=== PATIENT | female | born 1995 | race Caucasian/White ===

== ENCOUNTER → 2017-02-08 | Outpatient (CLI) | payer MEDICAID ==
[~2017-02-08] MED LIST: CIPR500T4 PO; METR500T21 PO
--- NOTE | 2017-02-08 11:58 | Diagnostic Imaging Report ---
First trimester OB ultrasound. INDICATION: Lower abdominal pain FINDINGS: There is a normal-appearing single intrauterine . An embryo is seen with cardiac activity at 156 beats per minute. The crown-rump length is at 7 weeks and 4 days. AMNA is 09/23/17. The ovaries appear unremarkable. No adnexal mass or free fluid is seen in the pelvis. IMPRESSION: Live single intrauterine . Dictated by: Dictated on workstation # [id number]
== END ==
LOC: RAD 11:23
PROVIDERS: ATTEND Obstetrics & Gynecology
DX: O26.891 Other specified pregnancy related conditions, first trimester (principal); R10.30 Lower abdominal pain, unspecified; Z3A.01 Less than 8 weeks gestation of pregnancy
CPT/HCPCS: 76801

== ENCOUNTER 2017-04-30 14:52 | Emergency (ER) | payer MEDICAID ==
[~2017-04-30] VITALS: Ht 157.5 cm; Wt 49.9 kg
--- OUTSIDE RECORDS SUMMARY | 2017-04-30 14:58 | XMS REPORT | Clinical Summary ---
Author Author Admin, [facility] Organization All Address Unknown Phone Unavailable Allergies, Adverse Reactions, Alerts Allergy Name Reaction Description Start Date Severity Status Provider Allergies Unknown Conditions or Problems Problem Name Problem Code Onset Date Status Entry Date Provider Comment Standard Description Annotate Problems Unknown Active Medication List Medication Instructions Start Date Stop Date Generic Name NDC Status Provider Patient Instruction AMOXICILLIN 500 MG CAPS 2 po BID x 10 days AMOXICILLIN [id number] Active Melissa Paz APRN Active
--- OUTSIDE RECORDS SUMMARY | 2017-04-30 14:58 | XMS REPORT ---
Author Author [facility] Address Unknown Phone Unavailable Care Team Providers Care Doctor Chiropractic Name Role Phone Darlene Daugherty PCP Encounter [id number] [id number] Date(s): 10/25/16 - 10/25/[address] [address] Attending Physician: Darlene Daugherty Vital Signs No data available for this section Problem List Condition Effective Dates Status Health Status Informant Depression(Confirmed Active ) (Confirmed) 01/05/14 - 10/19/14 Resolved (Confirmed) 09/11/14 - 10/04/15 Resolved Tobacco < 05/26/13 Resolved patient user(Confirmed)1, 2 1Updated by Discern Expert based on Social History Documentation 2Added by Discern Expert based on Social History Documentation Diagnosis Diagnosis Type Effective Dates Health Status Clinical Service Informant Depression Discharge 10/25/16 Diagnosis Allergies, Adverse Reactions, Alerts Substance Reaction Severity Status Zoloft Hives Active Medications No Known Medications Results No data available for this section Immunizations No data available for this section Procedures No data available for this section Social History No data available for this section Assessment and Plan No data available for this section
--- OUTSIDE RECORDS SUMMARY | 2017-04-30 14:58 | XMS REPORT ---
Author DANNIELLE [facility] [employer] Address Unknown Phone Unavailable Care Team Providers Care Department Administrator Name Role Phone DANNIELLE NUNO CP Unavailable Allergies, Adverse Reactions, Alerts Substance Reaction Event Type N.K.D.A. Info Not Available Non Drug Allergy Problems Problem Type Condition Code Onset Dates Condition Status Problem examination or test, positive result V72.42 Active Problem Unspecified backache 724.5 Active Problem Herpes simplex without mention of complication 054.9 Active Assessment Dental examination Z01.20 Active Medications Medication Code System Code Instructions Start Date End Date Status Dosage PredniSONE [facility] [address]-94 10 mg October 31, 2013 1 Tablet 2 times per day for 5 days Take at 8 am and noon. Acyclovir [facility] [address]-92 400 mg January 06, 2014 1 tablet by Oral route 3 times per day for 5 days Procedures Procedure Coding System Code Date PANORAMIC FILM SEE ALSO CODE 08732 CPT-4 D0330 Mar 21, 2016 LTD ORAL EVALUATION - PROBLEM FOCUS CPT-4 D0140 Mar 21, 2016 Results No Known Results Summary Purpose eClinicalWorks Submission
--- OUTSIDE RECORDS SUMMARY | 2017-04-30 14:58 | XMS REPORT | Continuity of Care Document ---
Author Author [employer] Organization [facility] Address Unknown Phone Unavailable Care Team Providers Care Human Services Program Specialist Name Role Phone [employer] Unavailable Unavailable Problems Problem Status Onset Date Classification Date Reported Comments Source Depressive disorder (disorder) 10/25/2016 Diagnosis 10/29 [facility] Depressive disorder (disorder) 07/24/2016 Diagnosis 07/28 [facility] Dental abscess (disorder) Diagnosis 07/25/2016 [facility] Fatigue (finding) 2016 Diagnosis 07/25/2016 [facility] Acute bronchitis (disorder) 06/06/2016 Diagnosis 2015 [facility] Delivery normal (disorder) 10/05/2015 Diagnosis 2015 [facility] , function (observable entity) Resolved 01/05/2014 Problem 10/29/2016 [facility], [facility], [facility], [facility] Tobacco user (finding) Resolved 05/26/2013 Problem 2016 Updated by Discern Expert based on Social History Documentation Added by Discern Expert based on Social History Documentation [facility], [facility], [facility], [facility], [facility] Depressive disorder (disorder) Active Problem 10/29/2016 [facility], [facility], [facility], [facility], [facility] Medications Medication Details Route Status Patient Instructions Ordering Provider Order Date Source No Known Medications No known medications Active [facility] Allergies, Adverse Reactions, Alerts Substance Category Reaction Severity Reaction type Status Date Reported Comments Source Sertraline Assertion Hives Drug allergy [facility], [facility], [facility]. sertraline drug allergy Hives Allergy [facility] Immunizations Immunization Date Given Site Status Last Updated Comments Source No data available for this section No data available for this section [facility], [facility]. Results Vital Signs Encounters Location Location Details Encounter Type Encounter Number Reason For Visit Attending Provider ADM Date DC Date Status Source [facility] [id number] Clinic ( Outpatient) [id number] . [facility] 05/22/2013 [facility] [id number] Clinic ( Outpatient) [id number] . [facility] 05/23/2013 [facility] [id number] Clinic ( Outpatient) [id number] Lydia Halimamagnus 05/26/2013 [facility] [id number] Clinic ( Outpatient) [id number] Vanessa Hutchins 06/12/2013 [facility] [id number] Emergency [id number] [facility] 09/11/2013 09/11/2013 Active [facility] [id number] Emergency [id number] [facility] 09/11/2013 09/11/2013 Active [facility] [id number] Outpatient [id number] Arabella Noland 09/12/2015 Active [facility], [facility]. [facility] [id number] Inpatient [id number] Virginia Kirkland 10/04/2015 10/05/2015 Active [facility], [facility]. [facility] [id number] Jonathan Norris 06/06/2016 06/07/2016 [facility] [id number] Clinic ( Outpatient) [id number] Sam Henning 07/21/2016 07/21/2016 Active [facility] [id number] Darlene Daugherty 07/24/2016 [facility]/25[facility] [id number] Darlene Daugherty 10/25/2016 10/26/2016 [facility] Procedures Procedure Code Date Perfomer Comments Source No data available for this section [facility] Plan of Care Social History Assessment and Plan Family History Value Date Source Advance Directives Order Name Results Value Date Source
--- OUTSIDE RECORDS SUMMARY | 2017-04-30 14:58 | XMS REPORT ---
Author Author [facility] Organization [facility] Address [address], [place] [address] Phone [phone] Care Team Providers Care High School Combination Teacher Name Role Phone SAVITA AHUJA, LUAN PP [phone] Summary purpose TRANSITION OF CARE AUTO GENERATION Chief Complaint and Reason for Visit No authorized Reason for Visit (Admitting Diagnosis) is available for this visit. Problem list No authorized problems tracked for continuity of care are available for this visit. Encounters No authorized problems tracked for encounter diagnoses are available for this visit. Medications No medications recorded for this patient visit Allergies, adverse reactions, alerts No allergy information is available for this patient. Immunizations No immunizations recorded for this patient visit Relevant diagnostic tests and/or laboratory data RESULTS Radiology Results [id number]:05:00 Preg Compl Sono >14 wks PACs Image DATE OF EXAM: May 19 2015 [id number] SONO > 14WKS : RADIOLOGY REPORT DATE OF SERVICE: 05/19/15 HISTORY: Anatomic survey OB SONOGRAM GREATER THAN 14 WEEKS COMPLETE [id number] HOURS Single fetus is seen in breech presentation. There is active cardiac motion with heart rate of 142 beats per minute. BPD measurement suggests 20 week, 1 day gestation with head circumference 19 weeks, 3 days, abdominal circumference 20 weeks, 4 days and femur length 19 weeks, 6 days, giving composite average age of 20 weeks, 0 days. Estimated weight is 336 grams +/- 50 grams. This is approximately 12 ounces fetus in the 46th percentile. No anomaly is identified. Cervix is greater than 3 cm length and is closed. Placenta is posteriorly located without placenta previa. Amniotic fluid amount is normal with CHRISTOPHER equaling 11.6. Largest vertical pocket is 3.8 cm. IMPRESSION: Breech presentation. Age of approximately 20 week 0 days which agrees with previous study 04/19/2015. No abnormality identified. Estimated date of confinement sonographically is 10/06/2015. DO MYCHAL Farah/ny 05/19/2015 14:40:00 / 05/19/2015 14:53:29 cc:Dr. Aminta Townsend This document has been electronically Signed by: On: History of procedures No procedures recorded for this patient visit. Functional status No functional or cognitive status observations are available for this visit. Vital signs No authorized vital signs are available for this visit. Social history No Social History or smoking status observations were recorded for this visit. ( Unknown if ever smoked.) Treatment Plan No treatment plan text is available for this visit. Hospital discharge instructions No discharge instruction text is available for this visit.
--- OUTSIDE RECORDS SUMMARY | 2017-04-30 14:59 | XMS REPORT | Clinical Summary ---
Author Author Admin, [facility] Organization All Address Unknown Phone Unavailable Allergies, Adverse Reactions, Alerts Allergy Name Reaction Description Start Date Severity Status Provider Allergies Unknown Conditions or Problems Problem Name Problem Code Onset Date Status Entry Date Provider Comment Standard Description Annotate Pharyngitis, acute 462 Active Melissa Paz APRN Acute pharyngitis Medication List Medication Instructions Start Date Stop Date Generic Name NDC Status Provider Patient Instruction AMOXICILLIN 500 MG CAPS 2 po BID x 10 days AMOXICILLIN [id number] No Longer Active Melissa Paz APRN Active AMOXICILLIN 500 MG CAPS 2 po BID x 10 days AMOXICILLIN 500 MG CAPS [id number] AMOXICILLIN Inactive Vital Signs Date Name Value Unit Range Description blood pressure, diastolic - 8462-4 83 mm[Hg] BP elizondo blood pressure, systolic - 8480-6 121 mm[Hg] BP sys height E&M - 8302-2 105 [in_us] Bdy height temperature E&M 99.8 [degF] Body temperature weight E&M - 3141-9 121 [lb_av] Weight Measured Encounters Code Encounter Date Provider Facility CPT-14683 Level 2 New Patient 11:56:32 CDT Melissa Paz APRN [facility]
--- OUTSIDE RECORDS SUMMARY | 2017-04-30 14:59 | XMS REPORT | Clinical Summary ---
Author Author Admin, [facility] Organization All Address Unknown Phone Unavailable Allergies, [...] 2 po BID x 10 days AMOXICILLIN [id number] No Longer Active Melissa Paz APRN Active AMOXICILLIN 500 MG CAPS 2 po BID x 10 days AMOXICILLIN 500 MG CAPS 304007 AMOXICILLIN Inactive Vital Signs Date Name Value Unit Range Description blood pressure, diastolic - 8462-4 83 mm[Hg] BP elizondo blood pressure, systolic - 8480-6 121 mm[Hg] BP sys height E&M - 8302-2 105 [in_us] Bdy height temperature E&M 99.8 [degF] Body temperature weight E&M - 3141-9 121 [lb_av] Weight Measured Encounters Code Encounter Date Provider Facility CPT-18084 Level 2 New Patient 11:56:32 CDT Melissa Paz APRN [facility]
--- OUTSIDE RECORDS SUMMARY | 2017-04-30 14:59 | XMS REPORT ---
Author Author [facility] Organization [facility] Address [address], [place] [address] Phone [phone] Care Team Providers Care Electron Microprobe Operator Name Role Phone SAVITA AHUJA, LUAN PP [phone] Summary purpose TRANSITION OF CARE AUTO GENERATION [...] tests and/or laboratory data RESULTS Radiology Results [id number]:40:00 Preg Compl Sono >14 wks PACs Image DATE OF EXAM: May 19 2015 [id number] SONO > 14WKS : RADIOLOGY REPORT DATE OF SERVICE: 05/19/15 HISTORY: Anatomic survey OB SONOGRAM GREATER THAN 14 WEEKS COMPLETE [id number] HOURS Single fetus is seen in breech [...] of confinement sonographically is 10/06/2015. DO MYCHAL Farha/dc 05/19/2015 14:40:05/19/2015 14:53:29 cc:Dr. Josephine Townsend This document has been electronically Signed by: On: DATE OF EXAM: May 19 2015 [id number] SONO > 14WKS : RADIOLOGY REPORT DATE OF SERVICE: 05/19/15 HISTORY: Anatomic survey OB SONOGRAM GREATER THAN 14 WEEKS COMPLETE [id number] HOURS Single fetus is seen in breech [...] Estimated date of confinement sonographically is 10/06/2015. Isabel Herring DO /dc 05/19/2015 14:40:05/19/2015 14:53:29 cc:Dr. Josephine Townsend This document has been electronically Signed by: ISABEL HERRING DO On: May 20 20153:40P Result Amended on 2015-05-20 at 15:40:19. Previous status was [place]. History of procedures Procedure Code Code Type Description Date Performed Performing Physician 51473 CPT-4 OB US >/=14 WKS SNGL FETUS 05-19-2015 JOSEPHINE KHAN Functional status No functional or cognitive status [...]
--- OUTSIDE RECORDS SUMMARY | 2017-04-30 14:59 | XMS REPORT ---
Author Author [facility] Organization [facility] Address [address], [place] [address] Phone [phone] Summary purpose TRANSITION OF CARE AUTO GENERATION [...] Relevant diagnostic tests and/or laboratory data RESULTS Hematology [id number]:14:00 Result Normal Range Units WBC 6.2 4.8-10.8 103/uL RBC L 3.8 4.2-5.4 106/uL HGB L 10.9 12.0-16.0 g/dl HCT L 33.2 36.9-47.0 % MCV 87.8 81-99 FL MCH 28.8 27-31 pg MCHC L 32.8 33-37 g/dl RDW 13.2 11.5-15.5 % PLT 180 130-400 103/uL MPV 10.4 7.3-10.4 FL Neutro % 67.2 40-70 % Lymph % 22.1 20-40 % Piatt % 8.0 0-10.0 % Eos % 1.6 0-7.0 % Baso % 0.8 0-2 % Neutro # 4.1 1.5-7.5 103/uL Lymph # 1.4 0.9-4.0 103/uL Piatt # 0.5 0-0.8 103/uL Eos # 0.1 0-0.6 103/uL Baso # 0.1 0-0.1 103/uL Radiology Results [id number]:14:00 Result Normal Range Units MPV 10.4 7.3-10.4 [place] Reference Lab (send out) [id number]:14:00 Result Normal Range Units 1hr Glucose Tolerance 94 70-105 mg/dl History of procedures Procedure Code Code Type Description Date Performed Performing Physician J2790 CPT-4 RHO D IMMUNE GLOBULIN INJ 07-14-2015 SUSU MALIN 98294 CPT-4 GLUCOSE TEST 07-14-2015 SUSU MALIN 19741 CPT-4 COMPLETE CBC W/AUTO DIFF WBC 07-14-2015 SUSU MALIN Functional status No functional or cognitive status [...]
--- OUTSIDE RECORDS SUMMARY | 2017-04-30 14:59 | XMS REPORT | Clinical Summary ---
Author Author Admin, [facility] Organization All Address Unknown Phone [...] 2 po BID x 10 days AMOXICILLIN [id number] No Longer Active Melissa Paz APRN Active AMOXICILLIN 500 MG CAPS 2 po BID x 10 days AMOXICILLIN 500 MG CAPS 278416 AMOXICILLIN Inactive Vital Signs Date Name Value Unit Range Description blood pressure, diastolic - 8462-4 83 mm[Hg] BP elizondo blood pressure, systolic - 8480-6 121 mm[Hg] BP sys height E&M - 8302-2 105 [in_us] Bdy height temperature E&M 99.8 [degF] Body temperature weight E&M - 3141-9 121 [lb_av] Weight Measured Encounters Code Encounter Date Provider Facility CPT-54433 Level 2 New Patient 11:56:32 CDT Melissa Paz APRN [facility]
--- OUTSIDE RECORDS SUMMARY | 2017-04-30 14:59 | XMS REPORT | Clinical Summary ---
Author Author Admin, [facility] Organization All Address Unknown Phone Unavailable Allergies, [...] 2 po BID x 10 days AMOXICILLIN [id number] No Longer Active Melissa Paz APRN Active AMOXICILLIN 500 MG CAPS 2 po BID x 10 days AMOXICILLIN 500 MG CAPS 480557 AMOXICILLIN Inactive Vital Signs Date Name Value Unit Range Description blood pressure, diastolic - 8462-4 83 mm[Hg] BP elizondo blood pressure, systolic - 8480-6 121 mm[Hg] BP sys height E&M - 8302-2 105 [in_us] Bdy height temperature E&M 99.8 [degF] Body temperature weight E&M - 3141-9 121 [lb_av] Weight Measured Encounters Code Encounter Date Provider Facility CPT-74154 Level 2 New Patient 11:56:32 CDT Melissa Paz APRN [facility]
--- OUTSIDE RECORDS SUMMARY | 2017-04-30 14:59 | XMS REPORT ---
Author Author [facility] Medical Staff Organization [facility] Address [address] [place], [place] [address] Phone [phone] Care Team Providers Care Flaker Tender Name Role Phone SAVITA AHUJA, LUAN PP [phone] Summary purpose TRANSITION OF CARE AUTO GENERATION [...] diagnostic tests and/or laboratory data RESULTS Hematology [id number]:12:00 Result Normal Range Units WBC 6.6 4.8-10.8 103/uL RBC L 4.1 4.2-5.4 106/uL HGB L 11.3 12.0-16.0 g/dl HCT L 34.6 36.9-47.0 % MCV 85.4 81-99 FL MCH 27.9 27-31 pg MCHC L 32.7 33-37 g/dl RDW 14.8 11.5-15.5 % PLT 186 130-400 103/uL MPV 10.3 7.3-10.4 FL Radiology Results [id number]:59:00 Preg Compl Sono >14 wks PACs Image DATE OF EXAM: Apr 19 2015 [id number] SONO > 14WKS : RADIOLOGY REPORT DATE OF SERVICE: 04/19/15 HISTORY: Verify dating and intrauterine position. This is a complete study. OB SONOGRAM GREATER THAN 14 WEEKS [id number] HOURS Single fetus in breech position initially and then changed to vertex position is seen. There is active cardiac motion with heart rate 150 beats per minute. BPD measurement suggests 15 week 6 day gestation with abdominal circumference 16 weeks 2 days, head circumference 15 weeks 2 days and femur length 15 weeks 4 days, giving composite average age of 15 weeks 5 days. Estimated weight is 137 grams +/- 20 grams. This is approximately 5 ounces fetus. Kidneys are not diagnostically seen. No abnormality in renal fossa is seen. Other organs appear unremarkable. The cervix is 3.4 cm length and closed. Placenta is posteriorly located on the right without abnormality or placenta previa. Amniotic fluid amount is normal. IMPRESSION: Approximately 15 week 5 day gestation which is alive and in varied positions during the skin. No abnormality is seen. DO Sonja Farah 04/19/2015 10:09:00 / 04/19/2015 10:16:45 cc:Dr. Aminta Townsend This document has been electronically Signed by: On: DATE OF EXAM: Apr 19 2015 [id number] SONO > 14WKS : RADIOLOGY REPORT DATE OF SERVICE: 04/19/15 HISTORY: Verify dating and intrauterine position. This is a complete study. OB SONOGRAM GREATER THAN 14 WEEKS [id number] HOURS Single fetus in breech position initially and then changed to vertex position is seen. There is active cardiac motion with heart rate 150 beats per minute. BPD measurement suggests 15 week 6 day gestation with abdominal circumference 16 weeks 2 days, head circumference 15 weeks 2 days and femur length 15 weeks 4 days, giving composite average age of 15 weeks 5 days. Estimated weight is 137 grams +/- 20 grams. This is approximately 5 ounces fetus. Kidneys are not diagnostically seen. No abnormality in renal fossa is seen. Other organs appear unremarkable. The cervix is 3.4 cm length and closed. Placenta is posteriorly located on the right without abnormality or placenta previa. Amniotic fluid amount is normal. IMPRESSION: Approximately 15 week 5 day gestation which is alive and in varied positions during the skin. No abnormality is seen. DO MYCHAL Farah/moe 04/19/2015 10:09:00 / 04/19/2015 10:16:45 cc:Dr. Aminta Townsend This document has been electronically Signed by: ISABEL HERRING DO On: Apr 19 2015 11:59A Result Amended on 2015-04-19 at 11:59:52. Previous status was [place]. [id number]:12:00 Result Normal Range Units MPV 10.3 7.3-10.4 [place] [facility] Lab (send out) [id number]:12:00 Result Normal Range Units Miscellaneous Test CHLGCU Miscellaneous Test AFFIRM Miscellaneous Test TOXOPLASMOSIS IGM/IGG Miscellaneous Test HIVAGAB Miscellaneous Test HBSAG Miscellaneous Test RPR Miscellaneous Test RUBELLA IMMUNE STATUS History of procedures No procedures recorded for [...]
--- OUTSIDE RECORDS SUMMARY | 2017-04-30 14:59 | XMS REPORT ---
Author Author [employer] [facility] Medical Staff Organization [facility] Address [address], [place] [id number] Phone [phone] Care Team Providers Care [employer] Name Role Phone SAVITA AHUJA, LUAN PP [phone] Summary purpose TRANSITION OF CARE AUTO GENERATION [...] Relevant diagnostic tests and/or laboratory data RESULTS Routine Cultures [id number]:00 Urine Culture Plate Date and Time 04/19/2015 12:45 SourceURINE CULTURE REPORT No Growth After 24 Hours Release Date/Time: 04/20/2015 08:41 CULTURE REPORT No Growth After 48 Hours Release Date/Time: 04/21/2015 07:09 Hematology [id number]:[id number] Result Normal Range Units WBC 6.6 4.8-10.8 103/uL RBC L 4.1 4.2-5.4 106/uL HGB L 11.3 12.0-16.0 g/dl HCT L 34.6 36.9-47.0 % MCV 85.4 81-99 FL MCH 27.9 27-31 pg MCHC L 32.7 33-37 g/dl RDW 14.8 11.5-15.5 % PLT 186 130-400 103/uL MPV 10.3 7.3-10.4 FL Radiology Results [id number] Preg Compl Sono >14 wks PACs Image DATE OF EXAM: Apr 19 2015 [id number] [id number] > 14WKS : RADIOLOGY REPORT DATE OF SERVICE: 04/19/15 HISTORY: Verify dating and intrauterine position. This is a complete study. OB SONOGRAM GREATER THAN 14 WEEKS [id number] HOURS Single fetus in breech position initially [...] abnormality is seen. DO MYCHAL Farah/moe 04/19/2015 10:09: / 04/19/2015 10:16:45 cc:Dr. Aminta Townsend This document has been electronically Signed by: On: DATE OF EXAM: Apr 19 2015 [id number] SONO > 14WKS : RADIOLOGY REPORT DATE OF SERVICE: 04/19/15 HISTORY: Verify dating and intrauterine position. This is a complete study. OB SONOGRAM GREATER THAN 14 WEEKS [id number] HOURS Single fetus in breech position initially [...] abnormality is seen. DO MYCHAL Farah/moe 04/19/2015 10:09: / 04/19/2015 10:16:45 cc:Dr. Aminta Townsend This document has been electronically Signed by: NEVAEH BEE ISABEL On: Apr 19 2015 11:59A Result Amended on 2015-04-19 at 11:59:52. Previous status was MO. [id number] Result Normal Range Units MPV 10.3 7.3-10.4 FL Reference Lab (send out) [id number]:00 Result Normal Range Units Miscellaneous Test CHLGCU Miscellaneous Test AFFIRM Miscellaneous Test TOXOPLASMOSIS IGM/IGG Miscellaneous Test HIVAGAB Miscellaneous Test HBSAG Miscellaneous Test RPR Miscellaneous Test RUBELLA IMMUNE STATUS Miscellaneous Report See separate report. Report may be seen in EDM or may be a separate faxed report. Miscellaneous Report See separate report. Report may be seen in EDM or may be a separate faxed report. Miscellaneous Report See separate report. Report may be seen in EDM or may be a separate faxed report. Miscellaneous Report See separate report. Report may be seen in EDM or may be a separate faxed report. Miscellaneous Report See separate report. Report may be seen in EDM or may be a separate faxed report. Miscellaneous Report See separate report. Report may be seen in EDM or may be a separate faxed report. Miscellaneous Report See separate report. Report may be seen in EDM or may be a separate faxed report. History of procedures No procedures recorded for [...]
[2017-04-30] MEDS ORDERED: NS IV 1000 ML 1,000 ML IV ONE (15:36)
[2017-04-30 15:52] LABS: BASOPHILS # (AUTO) 0.1 10^3/uL (0.0-0.1); BASOPHILS % (AUTO) 1 % (0-10); EOSINOPHILS # (AUTO) 0.3 10^3/uL (0.0-0.3); EOSINOPHILS % (AUTO) 6 % (0-10); LYMPHOCYTES # (AUTO) 1.3 X 10^3 (1.0-4.0); LYMPHOCYTES % (AUTO) 29 % (12-44); MEAN CORPUSCULAR HEMOGLOBIN 27 PG (25-34); MEAN CORPUSCULAR HGB CONC 33 G/DL (32-36); MEAN CORPUSCULAR VOLUME 83 FL (80-99); MEAN PLATELET VOLUME 9.8 FL (7.4-10.4); MONOCYTES # (AUTO) 0.7 X 10^3 (0.0-1.0); MONOCYTES % (AUTO) 14 % (0-12); NEUTROPHILS # (AUTO) 2.3 X 10^3 (1.8-7.8); NEUTROPHILS % (AUTO) 50 % (42-75); PLATELET COUNT 232 10^3/uL (130-400); RED BLOOD COUNT 4.42 10^6/uL (4.35-5.85); RED CELL DISTRIBUTION WIDTH 14.4 % (10.0-14.5); WHITE BLOOD COUNT 4.7 10^3/uL (4.3-11.0)
--- NOTE | 2017-04-30 16:12 | ED General ---
General Chief Complaint: General Problems/Pain Stated Complaint: MULTIPLE COMPLAINTS Nursing Triage Note: pt reports neck and back pain x 3-4 days. Pt also reports intermittent palpitations. 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 She also had an IUD placed there. Pt reports they will no longer see her and that she is still having discharge down there. Nursing Sepsis Screen: No Definite Risk Source of Information: Patient Exam Limitations: No Limitations History of Present Illness Time Seen by Provider: 15:30 Initial Comments Here with report of a variety of complaints. Initial complaints and at around muscle pain along her back in shoulder on the left side. She states this is around her shoulder. Also is complaining about vaginal discharge and dark urine. Apparently she had IUD placed sometime back. She also had a medical with medication a month or 2 ago. She had persistent vaginal bleeding afterwards. She has been seen by Dr. Campbell. He ultimately did place IUD. She went last week for reevaluation due to the fact that she had vaginal discharge and was not able to see the doctor. She states the nurses there told her that she needed to find a family health clinic and they did give her a prescription for Flagyl. She has been taking this for 5 days and it has not helped. Does complain of lower abdominal pain. No fever or chills currently. She is very concerned about the discharge from the vagina. Timing/Duration: 1 Week Severity: Moderate, Severe Associated Systoms: No Chest Pain, No Cough, No Fever/Chills, No Nausea/ Vomiting, No Shortness of Air, Weakness Allergies and Home Medications Allergies Coded Allergies: No Known Drug Allergies (Unverified , 04/30/17) Home Medications No Active Prescriptions or Reported Meds Constitutional: see HPI, No chills, No fever EENTM: no symptoms reported Respiratory: no symptoms reported Cardiovascular: chest pain, palpitations Gastrointestinal: abdominal pain (Suprapubic), No nausea, No vomiting Genitourinary: discharge, pain : No Musculoskeletal: No back pain, No muscle pain Skin: no symptoms reported Psychiatric/Neurological: Anxiety, Denies Depressed Immunological/Allergic: no symptoms reported All Other Systems Reviewed Negative Unless Noted: Yes Past Wzwgsii-Qnmpdn-Egyqvr Hx Patient Social History Alcohol Use: Denies Use Recreational Drug Use: Yes (hx of opiod abuse) Smoking Status: Current Everyday Smoker Type Used: Cigarettes Recent Foreign Travel: No Contact w/Someone Who Travel: No Recent Infectious Disease Expo: No Physical Abuse: No Sexual Abuse: No Mistreated: No Fear: No Surgeries History of Surgeries: Yes (toes) Respiratory History of Respiratory Disorde: No Cardiovascular History of Cardiac Disorders: No Neurological History of Neurological Disord: No Genitourinary History of Genitourinary Disor: No Gastrointestinal History of Gastrointestinal Di: No Musculoskeletal History of Musculoskeletal Dis: No Endocrine History of Endocrine Disorders: No HEENT History of HEENT Disorders: No Cancer History of Cancer: No Psychosocial History of Psychiatric Problem: Yes Behavioral Health Disorders: Depression Suicide Risk Score: 0 Blood Transfusions History of Blood Disorders: No Reviewed Nursing Assessment Reviewed/Agree w Nursing PMH: Yes Physical Exam Vital Signs Vital Sign - Last 12Hours 04/30/17 15:11 Temp 97.3 Pulse 108 Resp 30 B/P (MAP) 106/68 Pulse Ox 100 Capillary Refill : Less Than 3 Seconds General Appearance: No Apparent Distress, WD/WN HEENT: PERRL/EOMI, Pharynx Normal Neck: Non Tender, Supple Respiratory: Lungs Clear, Normal Breath Sounds Cardiovascular: No Murmur, Tachycardia Gastrointestinal: Soft, Tenderness (suprapubic region) Genital/Rectal: Other (external genital exam normal. Clear brown drainage noted in vaginal vault. Retained tampon noted within the vaginal vault and this was removed. Cervix friable externally. IUD string noted within the cervical os.) Back: No CVA Tenderness, No Vertebral Tenderness, Muscle Spasm, Other (tender to the left posterior shoulder area and base of the neck on the left) Extremity: Normal Range of Motion, Non Tender Neurologic/Psychiatric: Alert, Oriented x3 Skin: Normal Color, Warm/Dry Progress/Results/Core Measures Results/Orders Lab Results Laboratory Tests Test 04/30/17 14:41 04/30/17 16:04 04/30/17 16:57 Range/Units White Blood Count 4.7 4.3-11.0 10^3/uL Red Blood Count 4.42 4.35-5.85 10^6/uL Hemoglobin 12.1 11.5-16.0 G/DL Hematocrit 37 35-52 % Mean Corpuscular Volume 83 80-99 FL Mean Corpuscular Hemoglobin 27 25-34 PG Mean Corpuscular Hemoglobin Concent 33 32-36 G/DL Red Cell Distribution Width 14.4 10.0-14.5 % Platelet Count 232 130-400 10^3/uL Mean Platelet Volume 9.8 7.4-10.4 FL Neutrophils (%) (Auto) 50 42-75 % Lymphocytes (%) (Auto) 29 12-44 % Monocytes (%) (Auto) 14 H 0-12 % Eosinophils (%) (Auto) 6 0-10 % Basophils (%) (Auto) 1 0-10 % Neutrophils # (Auto) 2.3 1.8-7.8 X 10^3 Lymphocytes # (Auto) 1.3 1.0-4.0 X 10^3 Monocytes # (Auto) 0.7 0.0-1.0 X 10^3 Eosinophils # (Auto) 0.3 0.0-0.3 10^3/uL Basophils # (Auto) 0.1 0.0-0.1 10^3/uL Sodium Level 139 135-145 MMOL/L Potassium Level 3.7 3.6-5.0 MMOL/L Chloride Level 106 98-107 MMOL/L Carbon Dioxide Level 26 21-32 MMOL/L Anion Gap 7 5-14 MMOL/L Blood Urea Nitrogen 9 7-18 MG/DL Creatinine 0.68 0.60-1.30 MG/DL Estimat Glomerular Filtration Rate > 60 BUN/Creatinine Ratio 13 Glucose Level 64 L 70-105 MG/DL Calcium Level 9.4 8.5-10.1 MG/DL Total Bilirubin 0.3 0.1-1.0 MG/DL Aspartate Amino Transf (AST/SGOT) 22 5-34 U/L Alanine Aminotransferase (ALT/SGPT) 17 0-55 U/L Alkaline Phosphatase 55 40-136 U/L C-Reactive Protein High Sensitivity 2.33 H 0.00-0.50 MG/DL Total Protein 7.7 6.4-8.2 GM/DL Albumin 4.2 3.2-4.5 GM/DL Urine Color MANNY H Urine Clarity CLEAR Urine pH 7 5-9 Urine Specific [place] 1.015 L 1.016-1.022 Urine Protein 1+ H NEGATIVE Urine Glucose (UA) NEGATIVE NEGATIVE Urine Ketones 1+ H NEGATIVE Urine Nitrite POSITIVE H NEGATIVE Urine Bilirubin NEGATIVE NEGATIVE Urine Urobilinogen 1 NORMAL MG/DL Urine Leukocyte Esterase 2+ H NEGATIVE Urine RBC (Auto) NEGATIVE NEGATIVE Urine RBC NONE /HPF Urine WBC 2-5 /HPF Urine Squamous Epithelial Cells 0-2 /HPF Urine Crystals NONE /LPF Urine Bacteria NONE /HPF Urine Casts NONE /LPF Urine Mucus SMALL H /LPF Urine Culture Indicated NO Micro Results Microbiology 04/30/17 Genital Culture, Resulted Pending 04/30/17 Wet Prep - Final, Resulted My Orders Orders - NORA MONTES MD Cbc With Automated Diff (04/30/17 15:36) Comprehensive Metabolic Panel (04/30/17 15:36) Hs C Reactive Protein (04/30/17 15:36) Ua Culture If Indicated (04/30/17 15:36) Saline Lock/Iv-Start (04/30/17 15:36) Ns Iv 1000 Ml (Sodium Chloride 0.9%) (04/30/17 15:36) Wet Prep (04/30/17 15:36) Neisseria Gonorrhea Dna (04/30/17 15:36) Chlamydia Dna (04/30/17 15:36) Genital Culture (04/30/17 15:36) Medications Given in ED Current Medications Medications Dose Ordered Sig/Selina Route Start Time Stop Time Status Last Admin Dose Admin Sodium Chloride 1,000 ml @ 0 mls/hr Q0M ONCE IV 04/30/17 15:36 04/30/17 15:41 DC 04/30/17 16:20 0 MLS/HR Vital Signs/I&O Vital Sign - Last 12Hours 04/30/17 15:11 Temp 97.3 Pulse 108 Resp 30 B/P (MAP) 106/68 Pulse Ox 100 Blood Pressure Mean: 81 Progress Note : Progress Note Seen and evaluated. IV, labs, UA, normal saline 1 L bolus ordered. Anticipate pelvic exam. Monitor patient. 1730: Pelvic exam complete. Patient had retained tampon. She states this tampon is been in for a week and she states that it was and at the time of insertion of the IUD. She states that she has not placed a tampon since and he was only before then. Either way, it was removed. Obviously there is some foul-smelling drainage with this. IUD appears to be in place. Cervix is tender with some areas of irritation. We will extend the Flagyl for another 7 days and add Cipro. Patient is actually feeling better now. Discharged home with return precautions. Patient verbalize understanding instructions and agreement with plan. Departure Impression Impression: Primary Impression: Bacterial vaginosis Additional Impressions: Retained tampon Qualified Codes: T19.2XXA - Foreign body in vulva and vagina, initial encounter Urinary tract infection Qualified Codes: N30.00 - Acute cystitis without hematuria Disposition: HOME, SELF-CARE Condition: Improved Departure-Patient Inst. Decision time for Depature: 17:38 Referrals: NO,LOCAL PHYSICIAN (PCP/Family) Primary Care Physician Patient Instructions: Bacterial Vaginosis (DC), Urinary Tract Infection, Adult (DC) Add. Discharge Instructions: All discharge instructions reviewed with patient and/or family. Voiced understanding. Take medications as directed. Follow-up with Dr. Campbell or physician of your choice for recheck and further evaluation. Return for worse pain, fever, vomiting, weakness, breathing problems, increasing vaginal discharge or bleeding , increasing abdominal pain or other concerns as needed. You may take ibuprofen 600 mg every 8 hours as needed for pain. You may take Tylenol 1000 mg every 8 hours as needed for pain. Drink plenty of fluids. Scripts Metronidazole (Metronidazole) 500 Mg Tablet 500 MG PO BID, #14 TAB 0 Refills Prov: NORA MONTES MD 04/30/17 Ciprofloxacin HCl (Ciprofloxacin HCl) 500 Mg Tablet 500 MG PO BID, #14 TAB Prov: NORA MONTES MD 04/30/17 Copy Copies To 1: DAMEON CAMPBELL MD, TIMOTHY D MD Apr 30, 2017 16:12
[2017-04-30 16:14] LABS: BILIRUBIN,URINE NEGATIVE (NEGATIVE); KETONES,URINE 1+ (NEGATIVE); LEUKOCYTE ESTERASE ,URINE 2+ (NEGATIVE); NITRITE,URINE POSITIVE (NEGATIVE); PH,URINE 7 (5-9); PROTEIN,URINE 1+ (NEGATIVE); UROBILINOGEN,URINE 1 MG/DL (NORMAL)
[2017-04-30 16:16] LABS: ALANINE AMINOTRANSFERASE 17 U/L (0-55); ALBUMIN 4.2 GM/DL (3.2-4.5); ANION GAP 7 MMOL/L (5-14); ASPARTATE AMINO TRANSFERASE 22 U/L (5-34); BILIRUBIN,TOTAL 0.3 MG/DL (0.1-1.0); BLOOD UREA NITROGEN 9 MG/DL (7-18); BUN/CREATININE RATIO 13; CALCIUM 9.4 MG/DL (8.5-10.1); CARBON DIOXIDE 26 MMOL/L (21-32); CHLORIDE 106 MMOL/L (98-107); CREATININE SERUM 0.68 MG/DL (0.60-1.30); GFR ESTIMATED > 60; GLUCOSE 64 MG/DL (70-105); POTASSIUM 3.7 MMOL/L (3.6-5.0); SODIUM 139 MMOL/L (135-145); TOTAL PROTEIN 7.7 GM/DL (6.4-8.2); hs C REACTIVE PROTEIN 2.33 MG/DL (0.00-0.50)
[2017-04-30 16:25] LABS: SQUAMOUS EPITHELIAL CELL,UR 0-2 /HPF
[2017-04-30] MEDS ORDERED: METR500T21 PO (17:40)
[2017-04-30] MEDS ORDERED: CIPR500T4 PO (17:40)
[2017-04-30 17:43] VITALS: BP 124/62
== END 2017-04-30 17:43 | disposition home or self-care (01) ==
LOC: EDUNIT# 14:52 → ER 14:54
DX: N76.0 Acute vaginitis (principal); B96.89 Other specified bacterial agents as the cause of diseases classified elsewhere; T19.2XXA Foreign body in vulva and vagina, initial encounter; N39.0 Urinary tract infection, site not specified; F32.9 Major depressive disorder, single episode, unspecified; F17.210 Nicotine dependence, cigarettes, uncomplicated; Z97.5 Presence of (intrauterine) contraceptive device
CPT/HCPCS: 36415; 80053; 81000; 85025; 86141; 87070; 87210; 87491; 87591; 96360